=== PATIENT | male | born 1975 | race Caucasian/White ===

== ENCOUNTER 2017-09-17 14:00 | Emergency (ER) | payer BC, OTHER ==
--- NOTE | 2017-09-17 14:33 | EDM.PDOC ---
ED HPI GENERAL MEDICAL PROBLEM - General Chief Complaint: Chest Pain Stated Complaint: [id number] heart PALP AND CHEST PAIN SOB Time Seen by Provider: 09/17/17 14:33 Source of Information: Reports: Patient History Limitations: Reports: No Limitations - History of Present Illness INITIAL COMMENTS - FREE TEXT/NARRATIVE: Pt c/o recurrent palpitations for approx. 1 month. Pt traveled to the [facility] for a 30 day vacation to visit his in-laws, and upon return had onset of the Sx's. He finds the Sx's are worse when he wakes in the morning, and sometimes happens randomly in the day, but has not caused him to wake from sleep. Denies any known triggers. Admits to occ. chest pains or tightness and mild SOB. Pt states he has anxiety, but only takes Xanax to sleep. Duration: Week(s): (4), Recurring Location: Reports: Chest Quality: Reports: Pressure Severity: Moderate Improves with: Reports: None Worsens with: Reports: None Associated Symptoms: Reports: No Other Symptoms Anterior Chest Pain Score (Numeric/FACES): 6 - Related Data Allergies Allergy/AdvReac Type Severity Reaction Status Date / Time morphine Allergy Irritabilit Verified 11/26/15 19:54 y Home Meds: Home Meds . [No Known Home Meds] 11/26/15 [History] Past Medical History Genitourinary History: Reports: Other (See Below) Other Genitourinary History: rash, discharge and burning with urination to the penis, started when he was in 6tth grade has never been given diagnoses Musculoskeletal History: Reports: Back Pain, Chronic Psychiatric History: Reports: Anxiety, Panic Attack Social & Family History - Family History Family Medical History: Noncontributory - Tobacco Use Smoking Status *Q: Former Smoker Used Tobacco, but Quit: Yes Month Tobacco Last Used: 2007 Second Hand Smoke Exposure: No - Recreational Drug Use Recreational Drug Use: No - Living Situation & Occupation Living situation: Reports: , with Family Occupation: Employed (self employed) ED ROS GENERAL - Review of Systems Review Of Systems: ROS reveals no pertinent complaints other than HPI. ED EXAM, GENERAL - Physical Exam Exam: See Below Exam Limited By: No Limitations General Appearance: Alert, WD/WN, No Apparent Distress Eye Exam: Bilateral Eye: Normal Inspection Ears: Normal External Exam, Normal Canal, Hearing Grossly Normal, Normal TMs Nose: Normal Inspection, Normal Mucosa, No Blood Throat/Mouth: Normal Inspection, Normal Lips, Normal Teeth, Normal Gums, Normal Oropharynx, Normal Voice, No Airway Compromise Head: Atraumatic, Normocephalic Neck: Normal Inspection, Supple, Non-Tender, Full Range of Motion. No: Carotid Bruit, Lymphadenopathy (L), Lymphadenopathy (R) Respiratory/Chest: No Respiratory Distress, Lungs Clear, Normal Breath Sounds, No Accessory Muscle Use, Chest Non-Tender Cardiovascular: Normal Peripheral Pulses, Regular Rate, Rhythm, No Edema, No Gallop, No JVD, No Murmur, No Rub GI/Abdominal: Normal Bowel Sounds, Soft, Non-Tender, No Distention, No Abnormal Bruit (Male) Exam: Deferred Rectal (Males) Exam: Deferred Back Exam: Normal Inspection, Full Range of Motion, NT Extremities: Normal Inspection, Normal Range of Motion, Non-Tender, No Pedal Edema, Normal Capillary Refill. No: Jayshree's Sign Neurological: Alert, Oriented, CN II-XII Intact, Normal Cognition, Normal Gait, No Motor/Sensory Deficits Psychiatric: Normal Affect, Normal Mood Skin Exam: Warm, Dry, Intact, Normal Color, No Rash EKG INTERPRETATION EKG Date: 09/17/17 Time: 14:10 Rhythm: Other (SR) Rate (Beats/Min): 93 [place]: Normal P-Wave: Present QRS: Normal ST-T: Normal QT: Normal Comparison: NA - No Prior EKG Course - Vital Signs Last Recorded V/S: Last Vital Signs Temp 37.6 C 09/17/17 14:08 Pulse 92 09/17/17 14:08 Resp 16 09/17/17 14:08 BP 153/110 H 09/17/17 14:08 Pulse Ox 97 09/17/17 14:08 - Orders/Labs/Meds Orders: Active Orders 24 hr Category Date Time Status EKG 12 Lead [EKG Documentation Completion] [RC] STAT Care 09/17/17 14:45 Active Telemetry Monitoring [Cardiac Monitoring] [RC] . Care 09/17/17 14:45 Active DIRECTED Labs: Laboratory Tests 09/17/17 09/17/17 09/17/17 Range/Units 14:50 14:50 14:50 WBC 6.7 (5.0-10.0) 10^3/uL RBC 5.86 (4.6-6.2) 10^6/uL Hgb 18.0 (14.0-18.0) g/dL Hct 51.1 (40.0-54.0) % MCV 87.2 (80-100) fL MCH 30.7 (27.0-34.0) pg MCHC 35.2 H (33.0-35.0) g/dL Plt Count 235 (150-450) 10^3/uL Neut % (Auto) 64.1 (42.2-75.2) % Lymph % (Auto) 25.8 (20.5-50.1) % [place] % (Auto) 6.7 (2-8) % Eos % (Auto) 2.8 (1.0-3.0) % Baso % (Auto) 0.6 (0.0-1.0) % D-Dimer, Quantitative < 100 (0-400) ng/mL Sodium 134 L (135-145) mmol/L Potassium 3.8 (3.6-5.0) mmol/L Chloride 100 L (101-111) mmol/L Carbon Dioxide 23.0 (21.0-31.0) mmol/L Anion Gap 14.8 BUN 19 H (7-18) mg/dL Creatinine 0.9 (0.6-1.3) mg/dL Est Cr Clr Drug Dosing 110.20 mL/min Estimated GFR (MDRD) > 60 BUN/Creatinine Ratio 21.11 Glucose 104 (74-105) mg/dL Calcium 9.8 (8.4-10.2) mg/dl Magnesium 2.1 (1.8-2.5) mg/dL Total Bilirubin 0.7 (0.2-1.0) mg/dL AST 29 (10-42) IU/L ALT 33 (10-60) IU/L Alkaline Phosphatase 61 (42-121) IU/L Troponin I < 0.02 (0.00-0.02) ng/ml Total Protein 8.4 H (6.7-8.2) g/dl Albumin 4.9 (3.2-5.5) g/dl Globulin 3.5 Albumin/Globulin Ratio 1.40 TSH, Ultra Sensitive (0.45-5.33) uIu/mL 03/06/18 Range/Units 14:50 WBC (5.0-10.0) 10^3/uL RBC (4.6-6.2) 10^6/uL Hgb (14.0-18.0) g/dL Hct (40.0-54.0) % MCV (80-100) fL MCH (27.0-34.0) pg MCHC (33.0-35.0) g/dL Plt Count (150-450) 10^3/uL Neut % (Auto) (42.2-75.2) % Lymph % (Auto) (20.5-50.1) % [place] % (Auto) (2-8) % Eos % (Auto) (1.0-3.0) % Baso % (Auto) (0.0-1.0) % D-Dimer, Quantitative (0-400) ng/mL Sodium (135-145) mmol/L Potassium (3.6-5.0) mmol/L Chloride (101-111) mmol/L Carbon Dioxide (21.0-31.0) mmol/L Anion Gap BUN (7-18) mg/dL Creatinine (0.6-1.3) mg/dL Est Cr Clr Drug Dosing mL/min Estimated GFR (MDRD) BUN/Creatinine Ratio Glucose (74-105) mg/dL Calcium (8.4-10.2) mg/dl Magnesium (1.8-2.5) mg/dL Total Bilirubin (0.2-1.0) mg/dL AST (10-42) IU/L ALT (10-60) IU/L Alkaline Phosphatase (42-121) IU/L Troponin I (0.00-0.02) ng/ml Total Protein (6.7-8.2) g/dl Albumin (3.2-5.5) g/dl Globulin Albumin/Globulin Ratio TSH, Ultra Sensitive 1.55 (0.45-5.33) uIu/mL Meds: CXR: No acute process per Rad. report. Departure - Departure Time of Disposition: 15:47 Disposition: Home, Self-Care 01 Condition: Good Clinical Impression: Palpitations Instructions: Palpitations, Nonspecific Chest Pain, [id number] Forms: ED Department Discharge Additional Instructions: No abnormal findings were found on your assessment today. A premature ventricular contraction (PVC) was seen. PVC's are benign normal "extra beats" that everyone has, but only some people feel. They are not dangerous and do not require any particular treatment. PVC's can be worse if you use nicotine, alcohol, decongestants, or stimulant medications, or if you are anxious. Follow up in clinic with your doctor for consideration of a cardiac event monitor for further evaluation. - My Orders Last 24 Hours: My Active Orders 09/17/17 14:45 EKG 12 Lead [EKG Documentation Completion] [RC] STAT Telemetry Monitoring [Cardiac Monitoring] [RC] . DIRECTED - Assessment/Plan Last 24 Hours: My Active Orders 09/17/17 14:45 EKG 12 Lead [EKG Documentation Completion] [RC] STAT Telemetry Monitoring [Cardiac Monitoring] [RC] . DIRECTED
[2017-09-17 14:35] VITALS: BP 153/110
[2017-09-17 15:19] LABS: CHLORIDE,CL 100 mmol/L (101-111); SODIUM,NA 134 mmol/L (135-145)
--- NOTE | 2017-09-17 15:40 | CR ---
Clinical history: 41-year-old male shortness of breath, chest pain and "palpitations". Interpretation: Negative exam. Rex thorax unremarkable. Left-sided aortic arch. Normal cardiac silhouette without alveolar edema or dependent pleural effusion. No lung mass, hilar lymphadenopathy or focal lobar pneumonia. No atelectasis/collapse. No pneumothorax.
--- NOTE | 2017-09-18 17:13 | EKG ---
09/17/2017 - [facility] ROE - TIME: 2:10 p.m. FINDINGS: EKG shows a rate of 92 beats per minute. Rhythm is sinus. Normal QRS complex, normal T-waves. No ST-segment changes. Normal axis. CONCLUSION: Normal EKG. [facility] /[id number]
== END 2017-09-17 16:24 | disposition home or self-care (01) ==
LOC: DL.ED 14:00
DX: R00.2 Palpitations (principal); Z88.5 Allergy status to narcotic agent; Z87.891 Personal history of nicotine dependence
CPT/HCPCS: 36415; 71046; 80053; 83735; 84443; 84484; 85025; 85379; 93005; 99285

== ENCOUNTER 2023-07-24 11:57 | Emergency (ER) | payer BC ==
[2023-07-24] MEDS ORDERED: Bacitracin Oint 1 GM U/D Packet TOP ONE (12:02)
[2023-07-24 12:04] VITALS: BP 145/87; PULSE 99
== END 2023-07-24 12:53 | disposition home or self-care (01) ==
LOC: DL.ED 11:57
DX: S01.01XA Laceration without foreign body of scalp, initial encounter (principal); S06.0X1A Concussion with loss of consciousness of 30 minutes or less, initial encounter; Z88.5 Allergy status to narcotic agent; W22.09XA Striking against other stationary object, initial encounter
CPT/HCPCS: 70450; 72125; 99282; 99284; A9270-GY

== ENCOUNTER 2024-09-25 12:54 | Emergency (ER) | payer BC ==
[2024-09-25] MEDS: Sodium Chloride 0.9% 10 ML Syringe FLUSH PRN (13:39)
[2024-09-25] MEDS: Sodium Chloride 0.9% 1,000 ML IV ONE (13:39)
[2024-09-25 13:40] LABS: BASOPHILS PERCENT AUTO 0.5 % (0.0-1.0); EOSINOPHILS PERCENT AUTO 4.4 % (1.0-3.0); HEMATOCRIT 48.4 % (40.0-54.0); HEMOGLOBIN 16.7 g/dL (14.0-18.0); LYMPHOCYTES PERCENT AUTO 30.5 % (20.5-50.1); MEAN CORPUSCULAR HEMOGLOBIN 30.6 pg (27.0-34.0); MEAN CORPUSCULAR HGB CONC 34.5 g/dL (33.0-35.0); MEAN CORPUSCULAR VOLUME 88.6 fL (80-100); NEUTROPHILS PERCENT AUTO 55.6 % (42.2-75.2); PLATELET COUNT,PLT 261 10^3/uL (150-450); RED BLOOD CELL COUNT 5.46 10^6/uL (4.6-6.2); WHITE BLOOD CELL COUNT,WBC 5.9 10^3/uL (5.0-10.0)
[2024-09-25] MEDS: Lidocaine 2% 20 ML MDV ONE (13:59)
[2024-09-25 14:09] LABS: A/G RATIO 1.2; ALANINE AMINOTRANSFERASE,ALT 25 U/L (16-63); ALBUMIN 4.1 g/dL (3.4-5.0); ALKALINE PHOSPHATASE 81 U/L (46-116); ANION GAP 14.1 mEq/L (7-13); ASPARTATE AMNIOTRANSFERASE,AST 14 U/L (15-37); BILIRUBIN TOTAL 0.4 mg/dL (0.2-1.0); BLOOD UREA NITROGEN,BUN 30 mg/dL (7-18); BUN/CREATININE RATIO 28.3 (No establ ref range); CARBON DIOXIDE,CO2 29 mmol/L (21-32); CHLORIDE,CL 103 mmol/L (98-107); CREATININE 1.06 mg/dL (0.70-1.30); EST CRCL DRUG DOSING (CG) 87.08 mL/min; GLUCOSE RANDOM 141 mg/dL (70-99); PHOSPHORUS 3.6 mg/dL (2.6-4.7); POTASSIUM,K 4.1 mmol/L (3.5-5.1); PROTEIN TOTAL,TP 7.6 g/dL (6.4-8.2); SODIUM,NA 142 mmol/L (136-145); T4 FREE 1.02 ng/dL (0.76-1.46); TSH ULTRASENSITIVE 1.16 uIU/mL (0.36-3.74)
[2024-09-25 14:10] LABS: C-REACTIVE PROTEIN < 0.50 ng/dL (<=0.50); ESTIMATED GFR 88 mL/min (>=60)
[2024-09-25] MEDS: Iopamidol 755 Mg/ML 100 ML Bottle IVPUSH ONE (14:14)
[2024-09-25] MEDS: Magnesium Sulf/Wat 2 GM/50 mL 2 GM in Premix Bag 1 BAG IV ONE ×2 (15:51→16:15)
[2024-09-25 15:58] VITALS: BP 137/87; PULSE 85
[2024-09-25] MEDS: Dexamethasone 4 MG/ML SDV IVPUSH ONE (16:17)
[2024-09-25 21:40] LABS: FOLIC ACID > 20.0 ng/mL (8.6-58.9)
== END 2024-09-25 16:39 | disposition home or self-care (01) ==
LOC: DL.ED 12:54
DX: H81.22 Vestibular neuronitis, left ear (principal); Z88.8 Allergy status to other drugs, medicaments and biological substances; Z88.5 Allergy status to narcotic agent
CPT/HCPCS: 36415; 70450; 70496; 70498; 80053; 82607; 82746; 83735; 84100; 84439; 84443; 85025; 86140; 86618; 96365; 96367; 96375; 99283; 99284-25; J1100; J2003; J3411; J3475; J7030; Q9967